=== PATIENT | male | born 1990 | race American Indian/Alaskan Native ===

== ENCOUNTER 2023-06-26 21:59 | Emergency (ER) | payer MEDICAID, OTHER | END 2023-06-26 22:43 | LOC: JP.ED 21:59 | DX: S01.01XA Laceration without foreign body of scalp, initial encounter (principal); Z87.891 Personal history of nicotine dependence; W22.8XXA Striking against or struck by other objects, initial encounter; Y93.89 Activity, other specified | CPT/HCPCS: 12002; 99283 ==